=== PATIENT | female | born 1970 | race African-American/Black ===

== ENCOUNTER 2018-08-07 05:21 | Inpatient (IN) ==
[2018-07-25 10:18] LABS: Basophils # 0.1 10*3/uL (0.0-0.2); Basophils % 1.1 % (0.0-0.8); Eosinophils # 0.1 10*3/uL (0.0-0.87); Eosinophils % 2.1 % (0.00-10.9); Hematocrit 32.7 VOL% (35.7-47.0); Hemoglobin 9.7 GM/DL (12.0-16.0); Immature Granulocytes % 0.5 %; Immature Granulocytes Absolute 0.03 #; Lymphocytes # 2.1 10*3/uL (1.4-4.0); Lymphocytes % 33.3 % (21.3-54.2); Mean Corpuscular HGB Conc 29.7 GM/DL (32-36); Mean Corpuscular Hemoglobin 24 PG (27-34); Mean Platelet Volume 10.8 FL (9.6-12.0); Monocytes # 0.4 10*3/uL (0.11-0.8); Monocytes % 6.9 % (1.7-12.7); Neutrophils # 3.5 10*3/uL (1.4-7.4); Neutrophils % 56.1 % (38.7-73.9); Platelet Count 308 T/CUMM (130-400); Red Blood Count 3.99 MC/CUMM (3.8-5.5); Red Cell Distribution Width 17.4 % (9.3-17.3); White Blood Count 6.3 T/CUMM (4-12)
[2018-07-25 10:31] LABS: Apearance,Urine Slightly Hazy (Clear); Bilirubin,Urine Negative (Negative); Blood, Urine Negative (Negative); Glucose,Urine (UA) Negative (Negative); Ketones,Urine Negative (Negative); Mucus,Urine Occasional /LPF (Occasional); Nitrite,Urine Negative (Negative); Protein,Urine Negative; RBC,Urine <1 /HPF (0-4); Squamous Epithelial Cell,Urine Occasional /HPF (0-10); Urine Color Yellow (Yellow); Urine Specific Gravity 1.019 (1.001-1.035); Urine Urobilinogen < 2.0 EU/DL (0.2-1.0); WBC,Urine <1 /HPF (0-6)
[2018-07-25 10:50] LABS: Albumin 3.8 G/DL (3.4-5.0); Bilirubin,Total 0.7 MG/DL (0.2-1.0); Calcium 8.6 MG/DL (8.5-10.1); Potassium 4.2 MMOL/L (3.5-5.1); Risk Ratio 2.52; Total Protein 7.9 G/DL (6.4-8.3); VLDL CHOLESTEROL 9.4 MG/DL
[2018-07-25 11:40] LABS: HIV Antigen/Antibody Result Nonreactive (Nonreactive)
[2018-08-07] MEDS ORDERED: AMPICILLIN/SULBACTAM 3,000 MG in SODIUM CHLORIDE 0.9% 100 ML IV ONE (06:00)
[2018-08-07] MEDS ORDERED: AMPICILLIN/SULBACTAM 3,000 MG VIAL ONE (06:21)
[2018-08-07] MEDS ORDERED: LACTATED RINGERS 1,000 ML IV SCH ×2 (07:00→10:00)
[2018-08-07] MEDS ORDERED: ceFAZolin 1,000 MG VIAL ONE (08:13)
[2018-08-07] MEDS ORDERED: GLUCAGON 1 MG VIAL IM PRN ×2 (09:29→09:31)
[2018-08-07] MEDS ORDERED: ONDANSETRON 4 MG/2 ML VIAL IV PRN ×2 (09:29→09:42)
[2018-08-07] MEDS ORDERED: BENZOCAINE/MENTHOL LOZENGE 18/BOX PO PRN (09:29)
[2018-08-07] MEDS ORDERED: MAGNESIUM HYDROXIDE SUSP 30 ML UDCUP PO PRN (09:29)
[2018-08-07] MEDS ORDERED: DEXTROSE 50% 25 GM/50 ML VIAL IV PRN ×2 (09:29→09:31)
[2018-08-07] MEDS ORDERED: ACETAMINOPHEN 325 MG TABLET PO PRN (09:29)
[2018-08-07] MEDS ORDERED: BISACODYL 10 MG SUPP RECTAL PRN (09:29)
[2018-08-07] MEDS ORDERED: SEVOFLURANE 1 UNIT/15 MINUTE INH ONE (09:44)
[2018-08-07] MEDS ORDERED: PROPOFOL 200 MG/20 ML VIAL IV ONE (09:44)
[2018-08-07] MEDS ORDERED: SUCCINYLCHOLINE 200 MG/10 ML VIAL ONE (09:45)
[2018-08-07] MEDS ORDERED: MIDAZOLAM 2 MG/2 ML VIAL ONE (09:45)
[2018-08-07] MEDS ORDERED: PHENYLEPHRINE 1 MG/10 ML SYRINGE IV ONE (09:45)
[2018-08-07] MEDS ORDERED: GLYCOPYRROLATE 0.4 MG/2 ML VIAL ONE ×2 (09:45)
[2018-08-07] MEDS ORDERED: fentaNYL 100 MCG/2 ML VIAL ONE (09:45)
[2018-08-07] MEDS ORDERED: NEOSTIGMINE 10 MG/10 ML VIAL ONE (09:46)
[2018-08-07] MEDS ORDERED: ROCURONIUM 100 MG/10 ML VIAL IV ONE (09:46)
[2018-08-07 09:56] LABS: Amorphous Crystals,Urine Occasional /HPF (Few); Apearance,Urine CLEAR (Clear); Bilirubin,Urine Negative (Negative); Blood, Urine Negative (Negative); Glucose,Urine (UA) Negative (Negative); Ketones,Urine Negative (Negative); Mucus,Urine Occasional /LPF (Occasional); Nitrite,Urine Negative (Negative); Protein,Urine Negative; RBC,Urine <1 /HPF (0-4); Squamous Epithelial Cell,Urine Occasional /HPF (0-10); Urine Color Straw (Yellow); Urine Urobilinogen < 2.0 EU/DL (0.2-1.0); WBC,Urine <1 /HPF (0-6)
[2018-08-07] MEDS ORDERED: HYDROmorphone 2 MG/1 ML VIAL ONE (09:56)
[2018-08-07] MEDS ORDERED: ONDANSETRON 4 MG/2 ML VIAL ONE (09:56)
[2018-08-07] MEDS: HYDROmorphone 2 MG/1 ML VIAL IV PRN ×8 (10:00→22:27)
[2018-08-07] MEDS ORDERED: HYDROmorphone 2 MG/1 ML VIAL IV PRN (12:30)
[2018-08-07] MEDS: LACTATED RINGERS 1,000 ML IV SCH ×2 (14:02→22:15)
[2018-08-07] MEDS: IBUPROFEN 800 MG TABLET PO PRN (14:56)
[2018-08-07] MEDS: ceFAZolin 1,000 MG in SYRINGE 1 EACH IV SCH (15:41)
[2018-08-08] MEDS: ceFAZolin 1,000 MG in SYRINGE 1 EACH IV SCH (00:03)
[2018-08-08] MEDS: LACTATED RINGERS 1,000 ML IV SCH (06:15)
[2018-08-08 06:24] LABS: Basophils % 0.1 % (0.0-0.8); Eosinophils % 0.1 % (0.00-10.9); Hematocrit 33.6 VOL% (35.7-47.0); Immature Granulocytes % 0.2 %; Immature Granulocytes Absolute 0.02 #; Lymphocytes # 1.2 10*3/uL (1.4-4.0); Lymphocytes % 12.7 % (21.3-54.2); Mean Corpuscular HGB Conc 29.2 GM/DL (32-36); Mean Corpuscular Hemoglobin 25 PG (27-34); Mean Corpuscular Volume 84.2 FL (87-102); Mean Platelet Volume 10.7 FL (9.6-12.0); Monocytes # 0.8 10*3/uL (0.11-0.8); Monocytes % 8.6 % (1.7-12.7); Neutrophils # 7.4 10*3/uL (1.4-7.4); Neutrophils % 78.3 % (38.7-73.9); Platelet Count 250 T/CUMM (130-400); Red Blood Count 3.99 MC/CUMM (3.8-5.5); Red Cell Distribution Width 17.2 % (9.3-17.3); White Blood Count 9.4 T/CUMM (4-12)
[2018-08-08 06:29] LABS: Hemoglobin 9.8 GM/DL (12.0-16.0)
[2018-08-08] MEDS: METOCLOPRAMIDE 10 MG/2 ML VIAL IV SCH ×2 (08:10→15:48)
[2018-08-08] MEDS: DOCUSATE SODIUM 100 MG CAPSULE PO PRN ×2 (08:12→21:53)
[2018-08-08] MEDS ORDERED: MAGNESIUM CITRATE 300 ML BOTTLE PO ONE (21:00)
[2018-08-08] MEDS: SIMETHICONE CHEW 80 MG TABLET PO PRN (21:54)
[2018-08-09] MEDS: METOCLOPRAMIDE 10 MG/2 ML VIAL IV SCH (00:25)
[2018-08-09] MEDS: METOCLOPRAMIDE 10 MG TABLET PO SCH ×2 (00:35→09:26)
[2018-08-09] MEDS: SIMETHICONE CHEW 80 MG TABLET PO PRN (07:38)
[2018-08-09] MEDS: IBUPROFEN 800 MG TABLET PO PRN (07:38)
[2018-08-09 11:16] VITALS: BP 110/71
[2018-08-09] MEDS ORDERED: metFORMIN 500 MG TABLET PO SCH (17:00)
[2018-08-09] MEDS ORDERED: AMITRIPTYLINE 10 MG TABLET PO SCH (21:00)
[2018-08-09] MEDS ORDERED: CETIRIZINE 10 MG TABLET PO SCH (21:00)
[2018-08-09] MEDS ORDERED: PANTOPRAZOLE 40 MG TABLET PO SCH (21:00)
[2018-08-10] MEDS ORDERED: LOSARTAN 50 MG TABLET PO SCH (09:00)
== END 2018-08-09 13:55 | disposition home or self-care (01) | DRG 742 ==
LOC: N.SDSINP 05:21 → N.OB 10:40
PROVIDERS: ADMIT Obstetrics & Gynecology; ATTEND Obstetrics & Gynecology